=== PATIENT | female | born 1935 | race Caucasian/White ===

== ENCOUNTER 2017-01-08 17:25 | Emergency (ER) | payer MEDICARE, OTHER ==
[~2017-01-08] VITALS: Ht 157.5 cm; Wt 80.1 kg
[2017-01-08 18:02] LABS: BASO # 0.1 K/mm3 (0.0-0.2); BASO % 0.5 % (0.0-1.0); EOS # 0.2 K/mm3 (0.0-0.50); EOS % 2.2 % (0.0-3.0); LARGE UNSTAINED CELL # 0.2 K/mm3 (0.0-0.4); LARGE UNSTAINED CELL % 1.6 % (0.0-4.0); LYMPH # 2.2 K/mm3 (1.5-4.5); LYMPH % 17.4 % (24.0-44.0); MEAN CORPUSCULAR HEMOGLOBIN 30.2 pg (27.0-33.0); MEAN CORPUSCULAR HGB CONC 34.2 g/dl (32.0-36.5); MEAN CORPUSCULAR VOLUME 88.1 fl (80.0-96.0); MONO # 0.6 K/mm3 (0.0-0.8); MONO % 5.3 % (0.0-5.0); NEUTROPHILS # 8.3 K/mm3 (1.8-7.7); NEUTROPHILS % 72.9 % (36.0-66.0); PLATELET COUNT, AUTOMATED 320 k/mm3 (150-450); WHITE BLOOD COUNT 11.4 K/mm3 (4.0-10.0)
[2017-01-08] MEDS ORDERED: SYMB80INH INH (18:08)
[2017-01-08] MEDS ORDERED: PRAV40TA2 PO (18:08)
[2017-01-08] MEDS ORDERED: TRIA37.5 PO (18:08)
[2017-01-08 18:23] LABS: ANION GAP 8 MEQ/L (8-16); BLOOD UREA NITROGEN 37 MG/DL (7-18); CALCIUM LEVEL 8.8 MG/DL (8.8-10.2); CARBON DIOXIDE LEVEL 31 MEQ/L (21-32); CHLORIDE LEVEL 103 MEQ/L (98-107); CREATININE FOR GFR 1.16 MG/DL (0.55-1.02); GLOMERULAR FILTRATION RATE 47.5 (>32); GLUCOSE, FASTING 122 MG/DL (83-110); POTASSIUM SERUM 3.7 MEQ/L (3.5-5.1); SODIUM LEVEL 142 MEQ/L (136-145)
[2017-01-08] MEDS ORDERED: ISOVUE-370 76% 100ML VIAL (Q9967) As Ordered ONE (18:34)
--- NOTE | 2017-01-08 18:34 | ECGEPIP ---
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
[2017-01-08 19:00] LABS: ALBUMIN 3.3 GM/DL (3.2-5.2); ALBUMIN/GLOBULIN RATIO 0.92 (1.00-1.93); ALKALINE PHOSPHATASE 105 U/L (45-117); ALT/SGPT 13 U/L (12-78); AST/SGOT 12 U/L (15-37); BILIRUBIN,DIRECT < 0.1 MG/DL (0.0-0.2); BILIRUBIN,TOTAL 0.3 MG/DL (0.2-1.0); TOTAL PROTEIN 6.9 GM/DL (6.4-8.2)
--- NOTE | 2017-01-08 19:34 | REP ---
PORTABLE CHEST: HISTORY: Chest pain. COMPARISON: 09/18/2015 The technique utilized in obtaining the radiograph has magnified the cardiac silhouette and accentuated the interstitial markings. The superior mediastinal structures are midline. The cardiac silhouette is unremarkable in size, shape, and position. The diaphragmatic surfaces of the lungs are regular, and the costophrenic angles are clear. The pulmonary damon are clear. The imaged osseous structures are intact. IMPRESSION: There is no acute cardiopulmonary disease. No change from the prior exam. Signed by Wojciech Rowland DO 01/09/2017 12:18 P
--- NOTE | 2017-01-08 20:07 | REP ---
CT ANGIO CHEST: HISTORY: Dyspnea. Possible pulmonary embolus. COMPARISON: None. CONTRAST: 100 mL of Isovue-370 There is excellent visualization of the pulmonary arterial vasculature. There are no focal filling defects present that would be considered consistent with pulmonary emboli. There is no mediastinal or hilar adenopathy. There are no pleural or pericardial effusions. The imaged osseous structures are within normal limits for the patient's age. Evaluation of the lung damon show scattered asymmetric densities particularly in the dependent portion of the lung damon and in the lung bases along with cystic air spaces throughout the lung damon with biapical predominance, all consistent with emphysematous and fibrotic changes. There is no evidence of an abnormal nodule or spiculated mass. IMPRESSION: 1. There is no evidence of a pulmonary embolus. 2. Emphysematous changes as described above. Signed by Wojciech Rowland DO 01/09/2017 12:18 P
--- NOTE | 2017-01-08 20:28 | REP ---
CT ABDOMEN: HISTORY: Re-evaluate abdominal aortic aneurysm. COMPARISON: 04/24/2013, which is the latest prior for comparison. An abdominal aortic ultrasound examination was performed on 10/31/2016, which showed a 3.7 cm sized infrarenal abdominal aortic aneurysm with a length of 5.[address] cannot be compared to abdominal aortic ultrasound due to volume averaging and patient motion. CONTRAST: 100 mL Isovue-370 FINDINGS: There is cholelithiasis, status quo. The liver is essentially unchanged. There are no enhancing abnormalities. The spleen and pancreas are unchanged remaining within normal limits. The adrenal glands and kidneys are unchanged, remaining within normal limits. There is an infrarenal abdominal aortic aneurysm with a maximal AP dimension of 3.7 cm. The aneurysm measures approximately 5 cm in length. There is no periaortic adenopathy. There is no evidence of dissection. There is no free fluid or free air in the abdomen. The bowel loops and the mesenteries are within normal limits. CT PELVIS: There is sigmoid colon diverticulosis. The bowel loops and their mesenteries are otherwise unremarkable. There is no free fluid. There is no mass. There is no change in the osseous structures. IMPRESSION: 1. Abdominal aortic aneurysm as described above. 2. Known unchanged cholelithiasis. 3. Other findings as described above. Signed by Wojciech Rowland DO 01/09/2017 12:18 P
[2017-01-08] MEDS ORDERED: HEPARIN DRIP 25,000 UNITS in APPROPRIATE DILUENT 1 EA IV SCH (23:07)
[2017-01-08] MEDS ORDERED: NITROGLYCERIN 2% OINT 1 GM *U/D* PKT TOP ONE (23:15)
[2017-01-08] MEDS ORDERED: HEPARIN SOD (PORCINE) 5000 UNITS/ML VIAL IV ONE (23:15)
[2017-01-08 23:20] VITALS: BP 177/67
[2017-01-09 00:08] VITALS: BP 157/70
--- NOTE | 2017-01-09 05:57 | ECGEPIP ---
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
== END 2017-01-09 00:12 | disposition short-term general hospital (02) ==
LOC: M ED 19:22
DX: I21.4 Non-ST elevation (NSTEMI) myocardial infarction (principal); R06.02 Shortness of breath; E78.5 Hyperlipidemia, unspecified; J44.9 Chronic obstructive pulmonary disease, unspecified; I71.4 Abdominal aortic aneurysm, without rupture; F17.200 Nicotine dependence, unspecified, uncomplicated; Z79.899 Other long term (current) drug therapy; Z79.51 Long term (current) use of inhaled steroids
CPT/HCPCS: 71010; 71275; 74177; 80048; 80076; 82550; 82553; 83690; 83880; 84484; 85025; 93005; 93041; 94760; 96374; 99285; Q9967

== ENCOUNTER 2017-01-13 12:00 | Emergency (ER) | payer MEDICARE, OTHER ==
[~2017-01-13] VITALS: Ht 157.5 cm; Wt 77.1 kg
[~2017-01-13 12:00] MED LIST: PRAV40TA2 PO; SYMB80INH INH; TRIA37.5 PO
[2017-01-13] MEDS ORDERED: CLOP75TA2 PO (12:17)
[2017-01-13] MEDS ORDERED: CALC500T21 PO (12:17)
[2017-01-13] MEDS ORDERED: NICO21DI5 TD (12:17)
[2017-01-13] MEDS ORDERED: TYLE325T5 PO (12:17)
[2017-01-13] MEDS ORDERED: LOPR1TAB6 PO (12:17)
[2017-01-13] MEDS ORDERED: ASPI81TA85 PO (12:17)
[2017-01-13 14:17] LABS: BASO % 0.5 % (0.0-1.0); EOS # 0.2 K/mm3 (0.0-0.50); EOS % 2.2 % (0.0-3.0); LARGE UNSTAINED CELL # 0.2 K/mm3 (0.0-0.4); LARGE UNSTAINED CELL % 1.7 % (0.0-4.0); LYMPH % 15.8 % (24.0-44.0); MEAN CORPUSCULAR HEMOGLOBIN 29.2 pg (27.0-33.0); MEAN CORPUSCULAR HGB CONC 32.7 g/dl (32.0-36.5); MEAN CORPUSCULAR VOLUME 89.3 fl (80.0-96.0); MONO # 0.6 K/mm3 (0.0-0.8); MONO % 5.7 % (0.0-5.0); NEUTROPHILS # 8.4 K/mm3 (1.8-7.7); NEUTROPHILS % 74.1 % (36.0-66.0); PLATELET COUNT, AUTOMATED 299 k/mm3 (150-450); RED CELL DISTRIBUTION WIDTH 13.2 % (11.5-14.5); WHITE BLOOD COUNT 11.3 K/mm3 (4.0-10.0)
[2017-01-13 14:30] LABS: ANION GAP 4 MEQ/L (8-16); BLOOD UREA NITROGEN 24 MG/DL (7-18); CALCIUM LEVEL 8.2 MG/DL (8.8-10.2); CARBON DIOXIDE LEVEL 31 MEQ/L (21-32); CHLORIDE LEVEL 108 MEQ/L (98-107); CREATININE FOR GFR 0.83 MG/DL (0.55-1.02); GLOMERULAR FILTRATION RATE > 60.0 (>32); GLUCOSE, FASTING 98 MG/DL (83-110); POTASSIUM SERUM 4.3 MEQ/L (3.5-5.1); SODIUM LEVEL 143 MEQ/L (136-145)
--- NOTE | 2017-01-13 15:03 | REP ---
Chest two views HISTORY: Cough Comparison: 01/08/2017 The lungs are clear. The heart is normal in size. The pulmonary vasculature is normal in appearance. The bony structure is intact. IMPRESSION: No acute disease. Signed by Sanford Isidro MD 01/13/2017 02:54 P
[2017-01-13 22:02] VITALS: BP 145/68
--- NOTE | 2017-01-14 06:18 | ECGEPIP ---
Stationary ECG Study [facility] - ED Test Date: 2017-01-13 Pat Name: TEMI MCKEON Department: Room: - Gender: F Incoming Freight Clerk: jolynn : 1935 Requested By: Nickolas Boudreaux Order Number: [id number] Reading MD: Nickolas Sorenson Measurements Intervals [place] Rate: 62 P: -50 MS: 175 QRS: 79 QRSD: 85 T: 147 QT: 408 QTc: 414 Interpretive Statements SINUS RHYTHM LOW QRS VOLTAGE IN EXTREMITY LEADS NONSPECIFIC T-WAVE ABNORMALITY SIMILAR TO 01/08/17 Electronically Signed On 01-14-2017 6:18:04 EDT by Nickolas Sorenson
--- NOTE | 2017-01-14 06:20 | ECGEPIP ---
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
--- NOTE | 2017-01-14 06:27 | ECGEPIP ---
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
== END 2017-01-13 22:05 | disposition home or self-care (01) ==
LOC: M ED 13:26
DX: R06.02 Shortness of breath (principal); R07.9 Chest pain, unspecified; I25.10 Atherosclerotic heart disease of native coronary artery without angina pectoris; J44.9 Chronic obstructive pulmonary disease, unspecified; I10 Essential (primary) hypertension; I71.4 Abdominal aortic aneurysm, without rupture; Z87.891 Personal history of nicotine dependence; Z95.5 Presence of coronary angioplasty implant and graft; Z90.79 Acquired absence of other genital organ(s); Z79.82 Long term (current) use of aspirin; Z79.899 Other long term (current) drug therapy

== ENCOUNTER → 2017-01-24 | Outpatient (REF) | payer MEDICARE, OTHER ==
[~2017-01-24] MED LIST changes: +ASPI81TA85 PO; +CALC500T21 PO; +CLOP75TA2 PO; +LOPR1TAB6 PO; +NICO21DI5 TD; +TYLE325T5 PO
[2017-01-24 18:44] LABS: ANION GAP 8 MEQ/L (8-16); BLOOD UREA NITROGEN 19 MG/DL (7-18); CALCIUM LEVEL 8.8 MG/DL (8.8-10.2); CARBON DIOXIDE LEVEL 31 MEQ/L (21-32); CHLORIDE LEVEL 106 MEQ/L (98-107); CREATININE FOR GFR 0.91 MG/DL (0.55-1.02); GLOMERULAR FILTRATION RATE > 60.0 (>32); GLUCOSE, FASTING 117 MG/DL (83-110); MAGNESIUM LEVEL 2.1 MG/DL (1.8-2.4); PHOSPHORUS LEVEL 3.6 MG/DL (2.5-4.9); SODIUM LEVEL 145 MEQ/L (136-145)
== END ==
LOC: M LABDRAW1 14:29
PROVIDERS: ATTEND Internal Medicine Cardiovascular Disease
DX: I11.9 Hypertensive heart disease without heart failure (principal); Z79.899 Other long term (current) drug therapy

== ENCOUNTER 2017-03-27 10:11 | Emergency (ER) | payer MEDICARE, OTHER ==
[~2017-03-27] VITALS: Ht 157.5 cm; Wt 77.3 kg
[2017-03-27] MEDS ORDERED: SYMB80INH INH (10:29)
[2017-03-27] MEDS ORDERED: LOSA25TA8 PO (10:29)
[2017-03-27] MEDS ORDERED: RANI1TAB38 PO (10:29)
[2017-03-27] MEDS ORDERED: BUPR150T3 PO (10:29)
[2017-03-27] MEDS ORDERED: PROAAER10 INH (10:29)
[2017-03-27] MEDS ORDERED: CHLO125TA PO (10:29)
[2017-03-27] MEDS ORDERED: PANT40TA2 PO (10:29)
[2017-03-27] MEDS ORDERED: ATOR40TA75 PO (10:29)
[2017-03-27] MEDS ORDERED: CARV6.25 PO (10:29)
[2017-03-27] MEDS ORDERED: CHLO25TA GT (10:29)
[2017-03-27] MEDS ORDERED: NS 1,000 ML IV SCH (12:54)
[2017-03-27] MEDS ORDERED: ONDANSETRON 4MG/2ML VIAL (J2405) IV ONE (13:00)
[2017-03-27] MEDS: IPRATROPIUM 0.5MG/ALBUTEROL 2.5MG INH SOL UD 3ML (DUONEB)(J7620) NEB SCH ×3 (13:30→14:16)
[2017-03-27 13:41] LABS: BASO % 0.5 % (0.0-1.0); EOS # 0.4 K/mm3 (0.0-0.50); LARGE UNSTAINED CELL # 0.2 K/mm3 (0.0-0.4); LARGE UNSTAINED CELL % 1.7 % (0.0-4.0); LYMPH # 1.9 K/mm3 (1.5-4.5); LYMPH % 15.2 % (24.0-44.0); MEAN CORPUSCULAR HEMOGLOBIN 30.5 pg (27.0-33.0); MEAN CORPUSCULAR HGB CONC 34.7 g/dl (32.0-36.5); MEAN CORPUSCULAR VOLUME 87.9 fl (80.0-96.0); MONO # 0.7 K/mm3 (0.0-0.8); MONO % 6.2 % (0.0-5.0); NEUTROPHILS # 7.9 K/mm3 (1.8-7.7); NEUTROPHILS % 72.4 % (36.0-66.0); PLATELET COUNT, AUTOMATED 311 k/mm3 (150-450); RED CELL DISTRIBUTION WIDTH 13.3 % (11.5-14.5)
[2017-03-27 13:48] LABS: INR 1.06
--- NOTE | 2017-03-27 13:58 | REP ---
REASON FOR EXAM: Abdominal pain. COMPARISON: 01/08/2017 which showed an abdominal aortic aneurysm measuring 3.7 cm AP x 5 cm in length and infrarenal in location. The lungs bases are unchanged. There are no pleural or pericardial effusions. There is bibasilar subsegmental atelectatic change status quo. Note is again made with cholelithiasis. Hepatic and splenic densities are unchanged remaining within normal limits. Limited evaluation of the pancreas, adrenal glands, and kidneys show no significant changes from the prior exam. There are bilateral renal cysts. Limited evaluation of the bowel loops and their mesenteries show no significant changes from the prior exam, although limited without intravenous and oral bowel preparatory contrast agents. There is descending colon diverticulosis, status quo. There is no free fluid or free air in the abdomen. There is an infrarenal abdominal aortic aneurysm, which today measures approximately 3.9 cm. The infrarenal aneurysm is unchanged in length. It is difficult to evaluate without intravenous contrast administration. 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 CT PELVIS: There is sigmoid colon diverticulosis. There is no free fluid or free air. There is no mass or adenopathy. Bone window technique throughout the exam showed no significant change in the appearance of the osseous structures. Spinal degenerative changes are noted status quo. IMPRESSION: 1. Infrarenal abdominal aortic aneurysm as described above. This appears to have increased in size by 2 mm in the AP dimension. 2. Unchanged renal cysts, although not as well imaged as on the prior exam which was obtained after intravenous contrast administration. 3. Cholelithiasis, unchanged. 4. 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 5. Other findings as described above. Signed by Wojciech Rowland DO 03/27/2017 02:08 P
[2017-03-27 14:03] LABS: ALBUMIN 2.9 GM/DL (3.2-5.2); ALBUMIN/GLOBULIN RATIO 0.94 (1.00-1.93); ALKALINE PHOSPHATASE 103 U/L (45-117); ALT/SGPT 13 U/L (12-78); AMYLASE 35 U/L (25-115); ANION GAP 6 MEQ/L (8-16); AST/SGOT 11 U/L (15-37); BILIRUBIN,DIRECT 0.2 MG/DL (0.0-0.2); BILIRUBIN,TOTAL 0.8 MG/DL (0.2-1.0); BLOOD UREA NITROGEN 19 MG/DL (7-18); CALCIUM LEVEL 8.6 MG/DL (8.8-10.2); CARBON DIOXIDE LEVEL 31 MEQ/L (21-32); CHLORIDE LEVEL 102 MEQ/L (98-107); CREATININE FOR GFR 0.79 MG/DL (0.55-1.02); GLOMERULAR FILTRATION RATE > 60.0 (>32); GLUCOSE, FASTING 103 MG/DL (83-110); POTASSIUM SERUM 3.6 MEQ/L (3.5-5.1); SODIUM LEVEL 139 MEQ/L (136-145)
--- NOTE | 2017-03-27 14:43 | REP ---
CHEST X-RAY: Sitting AP view. HISTORY: Shortness of breath. Comparison chest x-ray January 13, 2017. FINDINGS: EKG monitoring electrodes overlie the chest. The lungs are symmetrically aerated and free of infiltrate. The heart is not felt to be enlarged. Aorta is calcific and a little tortuous. Pulmonary vasculature is not increased. EKG electrodes are seen. No significant bony abnormality. IMPRESSION: No active disease. Signed by Richard Arango MD 03/27/2017 06:20 P
[2017-03-27] MEDS ORDERED: CIPR-249 PO (18:09)
[2017-03-27] MEDS ORDERED: CIPROFLOXACIN 250 MG TAB PO ONE (18:15)
[2017-03-27] MEDS ORDERED: CIPROFLOXACIN 500 MG TAB PO ONE (18:15)
[2017-03-27 18:49] VITALS: BP 157/69
--- NOTE | 2017-03-27 21:54 | ECGEPIP ---
Stationary ECG Study 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
--- NOTE | 2017-03-28 15:02 | ED PDOC ---
Post-Departure Follow-Up dr abreu faxed formal report of ct abd/p for fu Ana Hernandez MD Mar 28, 2017 15:02
== END 2017-03-27 19:02 | disposition home or self-care (01) ==
LOC: M ED 10:11
DX: N30.90 Cystitis, unspecified without hematuria (principal); R10.9 Unspecified abdominal pain; R00.0 Tachycardia, unspecified; J45.909 Unspecified asthma, uncomplicated; J44.9 Chronic obstructive pulmonary disease, unspecified; K21.9 Gastro-esophageal reflux disease without esophagitis; I51.9 Heart disease, unspecified; F17.200 Nicotine dependence, unspecified, uncomplicated; Z88.8 Allergy status to other drugs, medicaments and biological substances; Z79.899 Other long term (current) drug therapy; Z79.02 Long term (current) use of antithrombotics/antiplatelets; Z79.82 Long term (current) use of aspirin; Z79.51 Long term (current) use of inhaled steroids
CPT/HCPCS: 71010; 74176; 80048; 80076; 81001; 82150; 83690; 85025; 85610; 93005; 93041; 94640; 96374; 99285; J2405; P9612

== ENCOUNTER 2017-07-02 16:40 | Emergency (ER) | payer MEDICARE, OTHER ==
[~2017-07-02] VITALS: Ht 157.5 cm; Wt 79.5 kg
[~2017-07-02 16:40] MED LIST changes: +ATOR40TA75 PO; +BUPR150T3 PO; +CARV6.25 PO; +CHLO125TA PO; +CHLO25TA GT; +CIPR-249 PO; +LOSA25TA8 PO; +PANT40TA2 PO; +PROAAER10 INH; +RANI1TAB38 PO
[2017-07-02] MEDS ORDERED: NS 500 ML IV ONE (17:15)
[2017-07-02 17:32] LABS: BASO # 0.1 10^3/uL (0.0-0.2); BASO % 0.4 % (0.0-1.0); EOS # 0.1 10^3/uL (0.0-0.50); EOS % 0.8 % (0.0-3.0); IMMATURE GRANULOCYTE % 0.5 % (0-0); LYMPH % 8.7 % (24.0-44.0); MEAN CORPUSCULAR HEMOGLOBIN 29.9 pg (27.0-33.0); MEAN CORPUSCULAR HGB CONC 33.7 g/dl (32.0-36.5); MEAN CORPUSCULAR VOLUME 88.7 fl (80.0-96.0); MONO # 0.4 10^3/uL (0.0-0.8); MONO % 3.8 % (0.0-5.0); NEUTROPHILS # 9.6 10^3/uL (1.8-7.7); NEUTROPHILS % 85.8 % (36.0-66.0); PLATELET COUNT, AUTOMATED 286 10^3/uL (150-450); RED CELL DISTRIBUTION WIDTH 13.3 % (11.5-14.5); WHITE BLOOD COUNT 11.2 10^3/uL (4.0-10.0)
[2017-07-02 17:46] LABS: INR 1.2
[2017-07-02 18:02] LABS: ALBUMIN 3.1 GM/DL (3.2-5.2); ALBUMIN/GLOBULIN RATIO 1.03 (1.00-1.93); ALKALINE PHOSPHATASE 106 U/L (45-117); ALT/SGPT 14 U/L (12-78); ANION GAP 6 MEQ/L (8-16); AST/SGOT 11 U/L (15-37); BILIRUBIN,DIRECT 0.2 MG/DL (0.0-0.2); BILIRUBIN,TOTAL 0.7 MG/DL (0.2-1.0); BLOOD UREA NITROGEN 27 MG/DL (7-18); CALCIUM LEVEL 8.5 MG/DL (8.8-10.2); CARBON DIOXIDE LEVEL 30 MEQ/L (21-32); CHLORIDE LEVEL 103 MEQ/L (98-107); CREATININE FOR GFR 1.06 MG/DL (0.55-1.02); GLOMERULAR FILTRATION RATE 52.6 (>32); GLUCOSE, FASTING 133 MG/DL (83-110); SODIUM LEVEL 139 MEQ/L (136-145); TOTAL PROTEIN 6.1 GM/DL (6.4-8.2)
[2017-07-02] MEDS ORDERED: ISOVUE-370 76% 100ML VIAL (Q9967) As Ordered ONE (18:51)
--- NOTE | 2017-07-02 19:50 | REPUSA ---
CT of the head Clinical history: dizziness. Comparison: 09/18/2014. Technique: Multiple axial CT images were obtained through the head without administration of contrast . Findings: The ventricles and sulci are symmetric bilaterally. There is no evidence of acute hemorrhag e or infarct. There is no midline shift, mass effect, or extra-axial fluid collection. The osseous st ructures are unremarkable. The visualized paranasal sinuses and mastoid air cells are clear. Impression: Negative study.
--- NOTE | 2017-07-02 19:50 | REPUSA ---
CT angiogram of the chest Clinical statement: shortness of breath. Technique: Multiple axial CT images were obtained from the thoracic inlet through the upper abdomen a fter a bolus administration of nonionic intravenous contrast. Coronal and sagittal reconstructions we re also obtained. No comparison is available. Findings: The pulmonary arteries are well-opacified with contrast, with no intraluminal filling defec ts to suggest embolism. The thoracic aorta is unremarkable. Thyroid gland is within normal limits. Th ere is no thoracic lymphadenopathy. There are no pericardial or pleural effusions. There is mild emph ysema with upper lobe predominance. There are no acute infiltrates. Limited imaging of the upper abdo men is unremarkable. There are no suspicious osseous lesions. Impression: Unremarkable CT examination of the chest. No evidence of pulmonary embolism.
--- NOTE | 2017-07-02 20:00 | REPUSA ---
CT of the abdomen and pelvis with contrast Clinical statement: Pain. Technique: Multiple axial CT images were obtained from the base of the lungs through the floor of the pelvis utilizing 5 mm axial slices after administration of nonionic intravenous contrast. Coronal an d sagittal reconstructions were also obtained. No comparison is available. Findings: Chest: The visualized lung bases are clear. Abdomen: The liver, spleen, pancreas, kidneys, and adrenal glands are unremarkable. Several gallstone s are seen within the gallbladder. No pericholecystic inflammatory changes are seen. The aorta demons trates a infrarenal aneurysm measuring 3.9 x 3.5 cm. There is no evidence of dissection or rupture. T here is no evidence of abdominal lymphadenopathy or ascites. There is a small umbilical hernia contai wilma only omental fat. Pelvis: The bowel is unremarkable, with no obstructive or inflammatory changes. There is moderate sig moid diverticulosis. The urinary bladder is within normal limits. The other pelvic structures appear grossly intact. There is no evidence of pelvic lymphadenopathy or ascites. Bones: There are no suspicious osseous abnormalities seen. Impression: 1. No obstructive or inflammatory bowel changes. Sigmoid diverticulosis without evidence of diverticu litis. 2. Cholelithiasis, without evidence of acute cholecystitis. 3. Infrarenal abdominal aortic aneurysm measuring 3.9 x 3.5 cm. 4. Small umbilical hernia. No bowel involvement is seen at the site.
[2017-07-02 20:15] VITALS: BP 146/83
--- NOTE | 2017-07-03 08:25 | ECGEPIP ---
Stationary ECG Study [facility] - ED Test Date: 2017-07-02 Pat Name: TEMI MCKEON Department: Room: - Gender: F Feed Weigher: APOLONIA : 1935 Requested By: JUAN Harkins Order Number: [id number] Reading MD: Esperanza Colin Measurements Intervals [place] Rate: 61 P: 41 [place]: 186 QRS: 37 QRSD: 90 T: 59 QT: 426 QTc: 431 Interpretive Statements SINUS RHYTHM LEFT VENTRICULAR HYPERTROPHY AND ST-T CHANGE VS ISCHEMIA SIMILAR 03/27/17 Electronically Signed On 07-03-2017 8:25:24 EDT by Esperanza Colin
--- NOTE | 2017-07-03 09:42 | ED PDOC ---
Post-Departure Follow-Up dr abreu faxed formal report of ct abd/p for fu Ana Hernandez MD Jul 03, 2017 09:41
== END 2017-07-02 20:16 | disposition home or self-care (01) ==
LOC: M ED 16:40
DX: R11.2 Nausea with vomiting, unspecified (principal); J44.9 Chronic obstructive pulmonary disease, unspecified; K44.9 Diaphragmatic hernia without obstruction or gangrene; Z79.01 Long term (current) use of anticoagulants; Z79.899 Other long term (current) drug therapy; Z79.82 Long term (current) use of aspirin; Z88.8 Allergy status to other drugs, medicaments and biological substances; Z87.891 Personal history of nicotine dependence
CPT/HCPCS: 70450; 71260; 74177; 80048; 80076; 82550; 82553; 83605; 83690; 84484; 85025; 85610; 85730; 93005; 93041; 96360; 96361; 99284; Q9967

== ENCOUNTER → 2018-04-28 | Outpatient (CLI) | payer MEDICARE, OTHER | LOC: M WUC 14:52 | DX: M17.12 Unilateral primary osteoarthritis, left knee (principal); M25.762 Osteophyte, left knee; M11.261 Other chondrocalcinosis, right knee; M25.562 Pain in left knee ==

== ENCOUNTER → 2018-04-28 | Outpatient (CLI) | payer MEDICARE, OTHER | LOC: M RAD 17:25 | DX: M79.605 Pain in left leg (principal); M17.12 Unilateral primary osteoarthritis, left knee; M25.762 Osteophyte, left knee; M11.261 Other chondrocalcinosis, right knee; M25.562 Pain in left knee | CPT/HCPCS: 93971 ==

== ENCOUNTER → 2018-05-30 | Outpatient (REF) | payer MEDICARE, OTHER ==
[2018-05-30 15:41] LABS: BASO # 0.1 10^3/uL (0.0-0.2); BASO % 0.4 % (0.0-1.0); EOS # 0.2 10^3/uL (0.0-0.50); EOS % 1.9 % (0.0-3.0); HEMATOCRIT 36.7 % (36.0-47.0); LYMPH # 1.5 10^3/uL (1.5-4.5); LYMPH % 12.5 % (24.0-44.0); MEAN CORPUSCULAR HEMOGLOBIN 29.4 pg (27.0-33.0); MEAN CORPUSCULAR HGB CONC 32.7 g/dl (32.0-36.5); MONO # 0.9 10^3/uL (0.0-0.8); MONO % 7.8 % (0.0-5.0); NEUTROPHILS % 76.4 % (36.0-66.0); PLATELET COUNT, AUTOMATED 385 10^3/uL (150-450); RED BLOOD COUNT 4.08 10^6/uL (4.00-5.40); RED CELL DISTRIBUTION WIDTH 13.6 % (11.5-14.5); WHITE BLOOD COUNT 11.8 10^3/uL (4.0-10.0)
[2018-05-30 15:59] LABS: URIC ACID 4.4 MG/DL (2.6-6.0)
[2018-05-30 15:59] LABS: C REACTIVE PROTEIN QUANTITATIV 0.74 MG/DL (0.00-0.30); RHEUMATOID FACTOR QUANT < 10.0 IU/ML (<15.0)
[2018-05-30 16:54] LABS: ERYTHROCYTE SEDIMENTATION RATE 49 mm/hr (0-42)
== END ==
LOC: M LABDRAW1 14:23
DX: M17.12 Unilateral primary osteoarthritis, left knee (principal)
CPT/HCPCS: 84550

== ENCOUNTER 2018-08-08 09:16 | Emergency (ER) | payer MEDICARE, OTHER ==
[2018-08-08] MEDS: LIDOCAINE VISCOUS 2% SOLN 15ML UDC MT (09:55)
[2018-08-08] MEDS: AMOXICILLIN 500 MG CAP PO (09:55)
== END 2018-08-08 10:05 | disposition home or self-care (01) ==
LOC: M ED 09:16
DX: K04.7 Periapical abscess without sinus (principal); I71.4 Abdominal aortic aneurysm, without rupture; J44.9 Chronic obstructive pulmonary disease, unspecified; I25.2 Old myocardial infarction; E78.00 Pure hypercholesterolemia, unspecified; Z95.5 Presence of coronary angioplasty implant and graft; Z88.1 Allergy status to other antibiotic agents; Z79.899 Other long term (current) drug therapy; Z79.02 Long term (current) use of antithrombotics/antiplatelets; Z79.82 Long term (current) use of aspirin; Z79.51 Long term (current) use of inhaled steroids
CPT/HCPCS: 99282

== ENCOUNTER 2018-08-20 01:14 | Inpatient (IN) | payer MEDICARE, OTHER ==
[2018-08-20] MEDS: MORPHINE 4 MG/ML 1ML VIAL/SYRINGE (J2270) SC (01:45)
[2018-08-20] MEDS: ONDANSETRON 4 MG ORAL DISINTEGRATING TAB (Q0162 PER 1MG) PO (01:45)
[2018-08-20] MEDS: LORazepam 2 MG/ML VIAL (J2060) IV (04:05)
[2018-08-20 04:24] LABS: BASO # 0.1 10^3/uL (0.0-0.2); BASO % 0.4 % (0.0-1.0); EOS # 0.4 10^3/uL (0.0-0.50); EOS % 3.3 % (0.0-3.0); HEMATOCRIT 34.2 % (36.0-47.0); HEMOGLOBIN 11.2 g/dl (12.0-15.5); IMMATURE GRANULOCYTE % 0.6 % (0-3.0); LYMPH # 1.9 10^3/uL (1.5-4.5); LYMPH % 15.3 % (24.0-44.0); MEAN CORPUSCULAR HEMOGLOBIN 29.6 pg (27.0-33.0); MEAN CORPUSCULAR HGB CONC 32.7 g/dl (32.0-36.5); MEAN CORPUSCULAR VOLUME 90.5 fl (80.0-96.0); MONO % 8.5 % (0.0-5.0); NEUTROPHILS # 8.8 10^3/uL (1.8-7.7); NEUTROPHILS % 71.9 % (36.0-66.0); PLATELET COUNT, AUTOMATED 347 10^3/uL (150-450); RED BLOOD COUNT 3.78 10^6/uL (4.00-5.40); RED CELL DISTRIBUTION WIDTH 13.2 % (11.5-14.5); WHITE BLOOD COUNT 12.2 10^3/uL (4.0-10.0)
[2018-08-20 04:47] LABS: ANION GAP 8 MEQ/L (8-16); BLOOD UREA NITROGEN 27 MG/DL (7-18); CALCIUM LEVEL 8.1 MG/DL (8.8-10.2); CARBON DIOXIDE LEVEL 29 MEQ/L (21-32); CHLORIDE LEVEL 109 MEQ/L (98-107); CREATININE FOR GFR 0.82 MG/DL (0.55-1.30); GLOMERULAR FILTRATION RATE > 60.0 (>32); GLUCOSE, FASTING 92 MG/DL (70-100); POTASSIUM SERUM 3.9 MEQ/L (3.5-5.1); SODIUM LEVEL 146 MEQ/L (136-145)
[2018-08-20] MEDS ORDERED: MORPHINE 4 MG/ML 1ML VIAL/SYRINGE (J2270) IV (06:15)
[2018-08-20] MEDS ORDERED: BISACODYL 10 MG SUPP PR (06:15)
[2018-08-20] MEDS ORDERED: ONDANSETRON 4MG/2ML VIAL (J2405) IV (06:15)
[2018-08-20] MEDS: HEPARIN SOD (PORCINE) 5000 UNITS/ML VIAL SC ×3 (06:49→20:15)
[2018-08-20] MEDS: CLOPIDOGREL 75 MG TAB PO (08:56)
[2018-08-20] MEDS: ASPIRIN 81 MG CHEW TABLET PO (08:56)
[2018-08-20] MEDS: PERCOCET 5MG/325MG TAB PO ×2 (08:56→20:16)
[2018-08-20] MEDS: SYMBICORT 80/4.5MCG INHALER 6GM INH ×2 (09:49→20:29)
[2018-08-20] MEDS: IPRATROPIUM 0.5MG/ALBUTEROL 2.5MG INH SOL UD 3ML (DUONEB)(J7620) NEB ×3 (09:50→20:00)
[2018-08-21] MEDS: IPRATROPIUM 0.5MG/ALBUTEROL 2.5MG INH SOL UD 3ML (DUONEB)(J7620) NEB ×4 (01:45→21:53)
[2018-08-21] MEDS: PERCOCET 5MG/325MG TAB PO ×3 (03:47→13:53)
[2018-08-21] MEDS: HEPARIN SOD (PORCINE) 5000 UNITS/ML VIAL SC ×3 (05:18→21:25)
[2018-08-21 06:19] LABS: HEMATOCRIT 35.3 % (36.0-47.0); HEMOGLOBIN 11.1 g/dl (12.0-15.5); MEAN CORPUSCULAR HEMOGLOBIN 28.9 pg (27.0-33.0); MEAN CORPUSCULAR HGB CONC 31.4 g/dl (32.0-36.5); MEAN CORPUSCULAR VOLUME 91.9 fl (80.0-96.0); PLATELET COUNT, AUTOMATED 349 10^3/uL (150-450); RED BLOOD COUNT 3.84 10^6/uL (4.00-5.40); RED CELL DISTRIBUTION WIDTH 13.2 % (11.5-14.5); WHITE BLOOD COUNT 13.6 10^3/uL (4.0-10.0)
[2018-08-21 06:41] LABS: GLUCOSE, FASTING 99 MG/DL (70-100)
[2018-08-21 06:42] LABS: ANION GAP 5 MEQ/L (8-16); BLOOD UREA NITROGEN 27 MG/DL (7-18); CALCIUM LEVEL 8.1 MG/DL (8.8-10.2); CARBON DIOXIDE LEVEL 32 MEQ/L (21-32); CHLORIDE LEVEL 104 MEQ/L (98-107); CREATININE FOR GFR 0.94 MG/DL (0.55-1.30); GLOMERULAR FILTRATION RATE > 60.0 (>32); POTASSIUM SERUM 3.2 MEQ/L (3.5-5.1); SODIUM LEVEL 141 MEQ/L (136-145)
[2018-08-21] MEDS: SYMBICORT 80/4.5MCG INHALER 6GM INH ×2 (07:33→21:52)
[2018-08-21] MEDS: CLOPIDOGREL 75 MG TAB PO (09:17)
[2018-08-21] MEDS: ASPIRIN 81 MG CHEW TABLET PO (09:17)
[2018-08-21] MEDS: POTASSIUM CHLORIDE 10 MEQ SR TABLET PO (09:18)
[2018-08-21] MEDS: MORPHINE 4 MG/ML 1ML VIAL/SYRINGE (J2270) IV (14:58)
[2018-08-21] MEDS: ANALGESIC BALM CRM 120 GM TOP (20:31)
[2018-08-21] MEDS: CYCLOBENZAPRINE 5MG TABLET PO (20:31)
[2018-08-21] MEDS: traMADol 50 MG TAB PO ×2 (20:32→22:26)
[2018-08-21] MEDS: ACETAMINOPHEN TAB 650MG DOSE (2X325MG) PO (21:39)
[2018-08-22] MEDS: IPRATROPIUM 0.5MG/ALBUTEROL 2.5MG INH SOL UD 3ML (DUONEB)(J7620) NEB ×4 (02:00→19:59)
[2018-08-22] MEDS: traMADol 50 MG TAB PO ×2 (05:43→14:17)
[2018-08-22] MEDS: HEPARIN SOD (PORCINE) 5000 UNITS/ML VIAL SC ×3 (05:43→22:09)
[2018-08-22 06:34] LABS: HEMATOCRIT 32.2 % (36.0-47.0); HEMOGLOBIN 10.5 g/dl (12.0-15.5); MEAN CORPUSCULAR HEMOGLOBIN 29.2 pg (27.0-33.0); MEAN CORPUSCULAR HGB CONC 32.6 g/dl (32.0-36.5); MEAN CORPUSCULAR VOLUME 89.4 fl (80.0-96.0); PLATELET COUNT, AUTOMATED 325 10^3/uL (150-450); RED CELL DISTRIBUTION WIDTH 13.2 % (11.5-14.5); WHITE BLOOD COUNT 17.8 10^3/uL (4.0-10.0)
[2018-08-22 07:01] LABS: ANION GAP 6 MEQ/L (8-16); BLOOD UREA NITROGEN 28 MG/DL (7-18); CALCIUM LEVEL 8.5 MG/DL (8.8-10.2); CARBON DIOXIDE LEVEL 31 MEQ/L (21-32); CHLORIDE LEVEL 104 MEQ/L (98-107); GLOMERULAR FILTRATION RATE > 60.0 (>32); GLUCOSE, FASTING 104 MG/DL (70-100); POTASSIUM SERUM 3.7 MEQ/L (3.5-5.1); SODIUM LEVEL 141 MEQ/L (136-145)
[2018-08-22] MEDS: SYMBICORT 80/4.5MCG INHALER 6GM INH ×2 (07:51→19:59)
[2018-08-22 09:01] LABS: MAGNESIUM LEVEL 1.7 MG/DL (1.8-2.4)
[2018-08-22] MEDS: ASPIRIN 81 MG CHEW TABLET PO (09:56)
[2018-08-22] MEDS: CLOPIDOGREL 75 MG TAB PO (09:56)
[2018-08-22] MEDS: CYCLOBENZAPRINE 5MG TABLET PO ×3 (09:56→22:09)
[2018-08-22] MEDS: ANALGESIC BALM CRM 120 GM TOP ×3 (09:59→22:09)
[2018-08-22] MEDS: cefTRIAXone SOD 1 GM in D5W MINI-BAG PLUS 50 ML IV (15:03)
[2018-08-22] MEDS: AZITHROMYCIN INJ 500 MG, VIAL MATE ADAPTER 1 EACH in D5W 250 ML IV (16:02)
[2018-08-23] MEDS: IPRATROPIUM 0.5MG/ALBUTEROL 2.5MG INH SOL UD 3ML (DUONEB)(J7620) NEB ×4 (02:00→20:00)
[2018-08-23] MEDS: traMADol 50 MG TAB PO ×2 (03:23→21:44)
[2018-08-23] MEDS: HEPARIN SOD (PORCINE) 5000 UNITS/ML VIAL SC ×3 (05:24→21:44)
[2018-08-23 06:16] LABS: HEMATOCRIT 34.3 % (36.0-47.0); HEMOGLOBIN 11.2 g/dl (12.0-15.5); MEAN CORPUSCULAR HEMOGLOBIN 29.4 pg (27.0-33.0); MEAN CORPUSCULAR HGB CONC 32.7 g/dl (32.0-36.5); PLATELET COUNT, AUTOMATED 338 10^3/uL (150-450); RED BLOOD COUNT 3.81 10^6/uL (4.00-5.40); RED CELL DISTRIBUTION WIDTH 13.3 % (11.5-14.5); WHITE BLOOD COUNT 20.7 10^3/uL (4.0-10.0)
[2018-08-23 06:41] LABS: ANION GAP 8 MEQ/L (8-16); BLOOD UREA NITROGEN 29 MG/DL (7-18); CALCIUM LEVEL 8.6 MG/DL (8.8-10.2); CARBON DIOXIDE LEVEL 29 MEQ/L (21-32); CHLORIDE LEVEL 104 MEQ/L (98-107); CREATININE FOR GFR 0.97 MG/DL (0.55-1.30); GLOMERULAR FILTRATION RATE 58.1 (>32); GLUCOSE, FASTING 121 MG/DL (70-100); POTASSIUM SERUM 3.9 MEQ/L (3.5-5.1); SODIUM LEVEL 141 MEQ/L (136-145)
[2018-08-23] MEDS: CYCLOBENZAPRINE 5MG TABLET PO ×3 (08:28→21:43)
[2018-08-23] MEDS: CLOPIDOGREL 75 MG TAB PO (08:28)
[2018-08-23] MEDS: ASPIRIN 81 MG CHEW TABLET PO (08:28)
[2018-08-23] MEDS: ANALGESIC BALM CRM 120 GM TOP ×3 (08:29→21:45)
[2018-08-23] MEDS: SYMBICORT 80/4.5MCG INHALER 6GM INH ×2 (09:08→20:35)
[2018-08-23] MEDS: methylPREDNISolone INJ 40 MG/1 ML VIAL (J2920) IV ×2 (09:44→21:44)
[2018-08-23] MEDS: SENNA 8.6 MG TAB (SENOKOT) PO ×2 (12:24→21:43)
[2018-08-23] MEDS: cefTRIAXone SOD 1 GM in D5W MINI-BAG PLUS 50 ML IV (14:37)
[2018-08-23] MEDS: AZITHROMYCIN INJ 500 MG, VIAL MATE ADAPTER 1 EACH in D5W 250 ML IV (16:31)
[2018-08-24] MEDS: IPRATROPIUM 0.5MG/ALBUTEROL 2.5MG INH SOL UD 3ML (DUONEB)(J7620) NEB ×4 (01:53→19:40)
[2018-08-24] MEDS: HEPARIN SOD (PORCINE) 5000 UNITS/ML VIAL SC ×3 (05:16→21:30)
[2018-08-24 06:03] LABS: HEMATOCRIT 31.7 % (36.0-47.0); HEMOGLOBIN 10.3 g/dl (12.0-15.5); MEAN CORPUSCULAR HEMOGLOBIN 29.3 pg (27.0-33.0); MEAN CORPUSCULAR HGB CONC 32.5 g/dl (32.0-36.5); MEAN CORPUSCULAR VOLUME 90.3 fl (80.0-96.0); PLATELET COUNT, AUTOMATED 351 10^3/uL (150-450); RED BLOOD COUNT 3.51 10^6/uL (4.00-5.40); WHITE BLOOD COUNT 15.3 10^3/uL (4.0-10.0)
[2018-08-24 06:21] LABS: ANION GAP 6 MEQ/L (8-16); BLOOD UREA NITROGEN 35 MG/DL (7-18); CALCIUM LEVEL 8.7 MG/DL (8.8-10.2); CARBON DIOXIDE LEVEL 29 MEQ/L (21-32); CHLORIDE LEVEL 104 MEQ/L (98-107); CREATININE FOR GFR 0.81 MG/DL (0.55-1.30); GLOMERULAR FILTRATION RATE > 60.0 (>32); GLUCOSE, FASTING 144 MG/DL (70-100); POTASSIUM SERUM 4.1 MEQ/L (3.5-5.1); SODIUM LEVEL 139 MEQ/L (136-145)
[2018-08-24] MEDS: SYMBICORT 80/4.5MCG INHALER 6GM INH ×2 (09:15→19:40)
[2018-08-24] MEDS: methylPREDNISolone INJ 40 MG/1 ML VIAL (J2920) IV ×2 (09:39→21:30)
[2018-08-24] MEDS: traMADol 50 MG TAB PO ×4 (09:40→21:31)
[2018-08-24] MEDS: CYCLOBENZAPRINE 5MG TABLET PO ×3 (09:41→21:30)
[2018-08-24] MEDS: SENNA 8.6 MG TAB (SENOKOT) PO ×2 (09:41→21:30)
[2018-08-24] MEDS: CLOPIDOGREL 75 MG TAB PO (09:41)
[2018-08-24] MEDS: ASPIRIN 81 MG CHEW TABLET PO (09:41)
[2018-08-24] MEDS: ANALGESIC BALM CRM 120 GM TOP ×3 (09:42→21:32)
[2018-08-24] MEDS: MOM 30ML SUSPENSION UDC PO (15:04)
[2018-08-24] MEDS: cefTRIAXone SOD 1 GM in D5W MINI-BAG PLUS 50 ML IV (15:04)
[2018-08-24] MEDS: AZITHROMYCIN INJ 500 MG, VIAL MATE ADAPTER 1 EACH in D5W 250 ML IV (15:06)
[2018-08-25] MEDS: IPRATROPIUM 0.5MG/ALBUTEROL 2.5MG INH SOL UD 3ML (DUONEB)(J7620) NEB ×4 (01:35→20:00)
[2018-08-25] MEDS: HEPARIN SOD (PORCINE) 5000 UNITS/ML VIAL SC ×3 (06:26→21:47)
[2018-08-25 07:02] LABS: MEAN CORPUSCULAR HEMOGLOBIN 29.5 pg (27.0-33.0); MEAN CORPUSCULAR HGB CONC 32.3 g/dl (32.0-36.5); MEAN CORPUSCULAR VOLUME 91.4 fl (80.0-96.0); PLATELET COUNT, AUTOMATED 397 10^3/uL (150-450); RED BLOOD COUNT 3.39 10^6/uL (4.00-5.40); RED CELL DISTRIBUTION WIDTH 13.2 % (11.5-14.5); WHITE BLOOD COUNT 15.8 10^3/uL (4.0-10.0)
[2018-08-25 07:20] LABS: ANION GAP 5 MEQ/L (8-16); BLOOD UREA NITROGEN 42 MG/DL (7-18); C REACTIVE PROTEIN QUANTITATIV 6.32 MG/DL (0.00-0.30); CALCIUM LEVEL 8.4 MG/DL (8.8-10.2); CARBON DIOXIDE LEVEL 29 MEQ/L (21-32); CHLORIDE LEVEL 106 MEQ/L (98-107); CREATININE FOR GFR 0.97 MG/DL (0.55-1.30); GLOMERULAR FILTRATION RATE 58.1 (>32); GLUCOSE, FASTING 127 MG/DL (70-100); POTASSIUM SERUM 4.7 MEQ/L (3.5-5.1); SODIUM LEVEL 140 MEQ/L (136-145)
[2018-08-25] MEDS: SYMBICORT 80/4.5MCG INHALER 6GM INH ×2 (08:24→20:22)
[2018-08-25] MEDS: SENNA 8.6 MG TAB (SENOKOT) PO ×2 (09:01→21:47)
[2018-08-25] MEDS: traMADol 50 MG TAB PO (09:01)
[2018-08-25] MEDS: ASPIRIN 81 MG CHEW TABLET PO (09:02)
[2018-08-25] MEDS: CYCLOBENZAPRINE 5MG TABLET PO ×3 (09:02→21:47)
[2018-08-25] MEDS: CLOPIDOGREL 75 MG TAB PO (09:02)
[2018-08-25] MEDS: methylPREDNISolone INJ 40 MG/1 ML VIAL (J2920) IV ×2 (09:02→21:47)
[2018-08-25] MEDS: ANALGESIC BALM CRM 120 GM TOP ×3 (09:02→21:48)
[2018-08-25] MEDS: cefTRIAXone SOD 1 GM in D5W MINI-BAG PLUS 50 ML IV (13:58)
[2018-08-25] MEDS: MOM 30ML SUSPENSION UDC PO (13:58)
[2018-08-25] MEDS: AZITHROMYCIN INJ 500 MG, VIAL MATE ADAPTER 1 EACH in D5W 250 ML IV (17:15)
[2018-08-26] MEDS: IPRATROPIUM 0.5MG/ALBUTEROL 2.5MG INH SOL UD 3ML (DUONEB)(J7620) NEB ×3 (02:00→13:30)
[2018-08-26 06:30] LABS: HEMOGLOBIN 9.8 g/dl (12.0-15.5); MEAN CORPUSCULAR HGB CONC 31.6 g/dl (32.0-36.5); MEAN CORPUSCULAR VOLUME 91.7 fl (80.0-96.0); PLATELET COUNT, AUTOMATED 404 10^3/uL (150-450); RED BLOOD COUNT 3.38 10^6/uL (4.00-5.40); RED CELL DISTRIBUTION WIDTH 13.3 % (11.5-14.5); WHITE BLOOD COUNT 13.8 10^3/uL (4.0-10.0)
[2018-08-26] MEDS: HEPARIN SOD (PORCINE) 5000 UNITS/ML VIAL SC (06:37)
[2018-08-26 06:50] LABS: ANION GAP 5 MEQ/L (8-16); BLOOD UREA NITROGEN 41 MG/DL (7-18); C REACTIVE PROTEIN QUANTITATIV 2.99 MG/DL (0.00-0.30); CALCIUM LEVEL 8.4 MG/DL (8.8-10.2); CARBON DIOXIDE LEVEL 31 MEQ/L (21-32); CHLORIDE LEVEL 104 MEQ/L (98-107); CREATININE FOR GFR 0.95 MG/DL (0.55-1.30); GLOMERULAR FILTRATION RATE 59.5 (>32); GLUCOSE, FASTING 128 MG/DL (70-100); POTASSIUM SERUM 4.9 MEQ/L (3.5-5.1); SODIUM LEVEL 140 MEQ/L (136-145)
[2018-08-26] MEDS: SYMBICORT 80/4.5MCG INHALER 6GM INH (07:57)
[2018-08-26] MEDS: MAGNESIUM CITRATE 300 ML BTL PO (09:00)
[2018-08-26] MEDS: ASPIRIN 81 MG CHEW TABLET PO (09:07)
[2018-08-26] MEDS: SENNA 8.6 MG TAB (SENOKOT) PO (09:07)
[2018-08-26] MEDS: CYCLOBENZAPRINE 5MG TABLET PO (09:07)
[2018-08-26] MEDS: predniSONE 20 MG TAB PO (09:07)
[2018-08-26] MEDS: CLOPIDOGREL 75 MG TAB PO (09:08)
[2018-08-26] MEDS: ANALGESIC BALM CRM 120 GM TOP (09:09)
[2018-08-26] MEDS ORDERED: MAGNESIUM CITRATE 300 ML BTL PO (13:00)
== END 2018-08-26 17:10 | disposition home health service (06) | DRG 551 ==
LOC: M ED 01:14 → M ED INP 06:10 → M MS5PR 11:20
DX: M51.16 Intervertebral disc disorders with radiculopathy, lumbar region (principal); J18.9 Pneumonia, unspecified organism; J44.0 Chronic obstructive pulmonary disease with (acute) lower respiratory infection; I10 Essential (primary) hypertension; I25.10 Atherosclerotic heart disease of native coronary artery without angina pectoris; I71.4 Abdominal aortic aneurysm, without rupture; R32 Unspecified urinary incontinence; E87.6 Hypokalemia; K44.9 Diaphragmatic hernia without obstruction or gangrene; M46.1 Sacroiliitis, not elsewhere classified; M48.061 Spinal stenosis, lumbar region without neurogenic claudication; Z87.891 Personal history of nicotine dependence; Z95.5 Presence of coronary angioplasty implant and graft; Z79.82 Long term (current) use of aspirin; Z79.899 Other long term (current) drug therapy; Z88.8 Allergy status to other drugs, medicaments and biological substances; Z79.02 Long term (current) use of antithrombotics/antiplatelets

== ENCOUNTER → 2018-10-09 | Outpatient (CLI) | payer MEDICARE, OTHER ==
[~2018-10-09] MED LIST changes: +AMLO2.5T3 PO; +AMLO25TA PO; +AMLO5TAB6 PO; +AMOX500C PO; +CEFD300CAP PO; +CHLO25TA PO; +FLON1SPR; +FLON1SPR NARES; +LOSA25TA14 PO; -LOSA25TA8 PO; -NICO21DI5 TD; +NICO21DI6 TD; +OCEA0.654; -PANT40TA2 PO; +PANT40TA3 PO; +PRED10TA2 PO
--- NOTE | 2018-10-09 17:09 | REP ---
CT abdomen and pelvis without IV or oral contrast: History: Abdominal aortic aneurysm with rupture. Comparison CT study July 02, 2017. CT findings: Preliminary digital training assistant radiograph shows a normal bowel gas pattern. There is right middle lobe and lingular basilar fibrosis. Lung damon are otherwise clear. No focal hepatic lesion is seen. The spleen is unremarkable. There is vascular calcification. Peripherally calcified large gallstones are seen in the gallbladder. No pancreatic abnormality is observed. Normal adrenal glands are seen. There is a low-density cyst in the left kidney 2.3 cm in diameter. A small peripheral hyperdense cyst is seen at the lower pole of the right kidney. There is an infrarenal abdominal aortic aneurysm which measures 4.0 cm in greatest diameter. There is no evidence of grazyna aneurysmal fibrosis or hemorrhage. No iliac artery aneurysm is seen. Left colonic diverticulosis is seen. Small and large intestinal bowel loops are otherwise unremarkable. No abdominal wall defect is seen. No bony destructive lesion is appreciated. Impression: 4.0 cm infrarenal abdominal aortic aneurysm which it is unchanged from the July 02, 2017 prior study. Cholelithiasis. Left renal cyst. Electronically Signed by Richard Arango MD 10/09/2018 05:30 P
== END ==
LOC: M RAD 14:55
PROVIDERS: ATTEND Surgery Vascular Surgery
DX: I71.4 Abdominal aortic aneurysm, without rupture (principal); N28.1 Cyst of kidney, acquired

== ENCOUNTER → 2019-03-27 | Outpatient (CLI) | payer MEDICARE, OTHER ==
--- NOTE | 2019-03-27 09:39 | REP ---
ULTRASOUND ABDOMINAL AORTA: Real-time sonographic evaluation of the abdominal aorta is performed. Fusiform aneurysmal dilatation is again seen of the mid abdominal aorta just inferior to the level of the renal arteries extending for a length of approximately 5 cm. The maximum AP diameter is 4.3 cm. Compared to the CT of 10/09/2018, this appears slightly increased, prior measurement is 3.9 cm. Proximal abdominal aorta is normal in caliber with maximum AP diameter of 2.4 cm. Distally just above the bifurcation, AP diameter is 2.8 cm. Common iliac artery is normal in caliber both measuring 1 cm in diameter. Scattered atherosclerotic calcifications are seen diffusely. IMPRESSION: Possible slight increase in size of fusiform aneurysm of mid abdominal aorta, measurement on prior CT 3.9 cm in maximum AP dimension, currently 4.3 cm. Electronically Signed by Jared Oleary MD 03/28/2019 10:45 A
== END ==
LOC: M RAD 08:08
PROVIDERS: ATTEND Physician Assistant
DX: I71.4 Abdominal aortic aneurysm, without rupture (principal)

== ENCOUNTER 2019-06-04 07:32 | Day surgery (SDC) | payer MEDICARE, OTHER ==
[~2019-06-04] VITALS: Ht 157.5 cm; Wt 65.2 kg
[2019-06-04] MEDS: NS 1,000 ML IV ONE (06:00)
[2019-06-04] MEDS ORDERED: LIDOCAINE 2% INJ 100 MG/5 ML SDV (FOR ANES.) As Ordered ONE (08:53)
[2019-06-04] MEDS ORDERED: PROPOFOL 500 MG/50 ML VIAL As Ordered ONE (08:53)
--- NOTE | 2019-06-04 09:25 | ROOR ---
Patient Name: Suzanne Rojas Procedure Date: 06/04/2019 8:39 AM Date of : 1935 Age: 84 Room: [facility] Gender: Female Note Status: Finalized Procedure: Upper GI endoscopy Indications: Generalized abdominal pain, Weight loss Providers: Sulaiman Dias Jr, MD Referring MD: Julita GOLD MD Requesting Provider: Medicines: Propofol per Anesthesia Complications: No immediate complications. Procedure: Pre-Anesthesia Assessment: - Prior to the procedure, a History and Physical was performed, and patient medications and allergies were reviewed. The patient is competent. The risks and benefits of the procedure and the sedation options and risks were discussed with the patient. All questions were answered and informed consent was obtained. Patient identification and proposed procedure were verified by the physician and the nurse in the pre-procedure area and in the procedure room. Mental Status Examination: alert and oriented. Airway Examination: normal oropharyngeal airway and neck mobility. Respiratory Examination: clear to auscultation. CV Examination: normal. ASA Grade Assessment: II - A patient with mild systemic disease. After reviewing the risks and benefits, the patient was deemed in satisfactory condition to undergo the procedure. The anesthesia plan was to use moderate sedation / analgesia (conscious sedation). Immediately prior to administration of medications, the patient was re-assessed for adequacy to receive sedatives. The heart rate, respiratory rate, oxygen saturations, blood pressure, adequacy of pulmonary ventilation, and response to care were monitored throughout the procedure. The physical status of the patient was re-assessed after the procedure. The Endoscope was introduced through the mouth, and advanced to the second part of duodenum. The upper GI endoscopy was accomplished without difficulty. The patient tolerated the procedure well. Findings: The upper third of the esophagus, middle third of the esophagus and lower third of the esophagus were normal. A small hiatal hernia was present. The cardia, gastric fundus, gastric body, gastric antrum, prepyloric region of the stomach and pylorus were normal. The duodenal bulb, first portion of the duodenum and second portion of the duodenum were normal. A single diminutive angioectasia without bleeding was found in the duodenal bulb. Impression: - Normal upper third of esophagus, middle third of esophagus and lower third of esophagus. - Small hiatal hernia. - Normal cardia, gastric fundus, gastric body, antrum, prepyloric region of the stomach and pylorus. - Normal duodenal bulb, first portion of the duodenum and second portion of the duodenum. - A single non-bleeding angioectasia in the duodenum. - No specimens collected. Recommendation: - Discharge patient to home (ambulatory). - Return to my office as previously scheduled. Sulaiman Dias MD Sulaiman Dias Jr, MD 06/04/2019 9:25:02 AM Electronically signed by Sulaiman Dias Jr, MD Number of Addenda: 0 Note Initiated On: 06/04/2019 8:39 AM Estimated Blood Loss: Estimated blood loss: none.
--- NOTE | 2019-06-04 09:28 | ROOR ---
Patient Name: Suzanne Rojas Procedure Date: 06/04/2019 8:40 AM Date of : 1935 Age: 84 Room: [facility] Gender: Female Note Status: Finalized Procedure: Colonoscopy Indications: Generalized abdominal pain, Weight loss Providers: Sulaiman Dias Jr, MD Referring MD: Julita GOLD MD Requesting Provider: Medicines: Propofol per Anesthesia Complications: No immediate complications. Procedure: Pre-Anesthesia Assessment: - Prior to the procedure, a History and Physical was performed, and patient medications and allergies were reviewed. The patient is competent. The risks and benefits of the procedure and the sedation options and risks were discussed with the patient. All questions were answered and informed consent was obtained. Patient identification and proposed procedure were verified by the physician and the nurse in the pre-procedure area and in the procedure room. Mental Status Examination: alert and oriented. Airway Examination: normal oropharyngeal airway and neck mobility. Respiratory Examination: clear to auscultation. CV Examination: normal. ASA Grade Assessment: II - A patient with mild systemic disease. After reviewing the risks and benefits, the patient was deemed in satisfactory condition to undergo the procedure. The anesthesia plan was to use moderate sedation / analgesia (conscious sedation). Immediately prior to administration of medications, the patient was re-assessed for adequacy to receive sedatives. The heart rate, respiratory rate, oxygen saturations, blood pressure, adequacy of pulmonary ventilation, and response to care were monitored throughout the procedure. The physical status of the patient was re-assessed after the procedure. The Colonoscope was introduced through the anus and advanced to the cecum, identified by appendiceal orifice and ileocecal valve. The colonoscopy was performed without difficulty. The patient tolerated the procedure well. The quality of the bowel preparation was adequate. Findings: Many small and large-mouthed diverticula were found in the sigmoid colon. A medium polyp was found in the rectum. The polyp was semi-sessile. The polyp was removed with a hot snare. Resection was complete, but the polyp tissue was only partially retrieved. The recto-sigmoid colon, descending colon, transverse colon, ascending colon, cecum and ileocecal valve appeared normal. Impression: - Diverticulosis in the sigmoid colon. - One medium polyp in the rectum, removed with a hot snare. Complete resection. Partial retrieval. - The recto-sigmoid colon, descending colon, transverse colon, ascending colon, cecum and ileocecal valve are normal. Recommendation: - Discharge patient to home (ambulatory). - Repeat colonoscopy for surveillance based on pathology results. Sulaiman Dias MD Sulaiman Dias Jr, MD 06/04/2019 9:27:40 AM Electronically signed by Sulaiman Dias Jr, MD Number of Addenda: 0 Note Initiated On: 06/04/2019 8:40 AM Estimated Blood Loss: Estimated blood loss: none.
[2019-06-04 09:50] VITALS: BP 181/91
== END 2019-06-04 10:05 | disposition home or self-care (01) ==
LOC: M OPP 07:32
PROVIDERS: ATTEND Surgery
DX: K62.1 Rectal polyp (principal); K57.30 Diverticulosis of large intestine without perforation or abscess without bleeding; R63.4 Abnormal weight loss; R10.84 Generalized abdominal pain; K44.9 Diaphragmatic hernia without obstruction or gangrene; Z79.899 Other long term (current) drug therapy; Z88.8 Allergy status to other drugs, medicaments and biological substances

== ENCOUNTER → 2019-06-16 | Outpatient (CLI) | payer MEDICARE, OTHER ==
--- NOTE | 2019-06-16 11:26 | REP ---
REASON FOR EXAM: Followup abdominal aortic aneurysm. COMPARISON EXAMINATION: 03/27/2019, the latest prior. The prior examination showed a fusiform abdominal aortic aneurysm just inferior to the renal veins with a maximum AP dimension of 4.3 cm and a length of approximately 5 cm. Multiple ultrasonographic images of the abdominal aorta were obtained from the level of the celiac axis to the aortoiliac bifurcation in the same fashion at the prior exam. Once again, the maximal AP dimension of the abdominal aortic aneurysm is 4.3 cm measured in the longitudinal scan plane. Again, this is seen to begin just inferior to the renal veins and measures approximately 5.2 cm in length. There is no change in the appearance of the common iliac arteries. There is no evidence of davie ectasia. IMPRESSION: Abdominal aortic aneurysm. No significant change from the prior exam as described above. Electronically Signed by Wojciech Rowland DO 06/16/2019 02:37 P
== END ==
LOC: M RAD 08:41
PROVIDERS: ATTEND Internal Medicine
DX: I71.4 Abdominal aortic aneurysm, without rupture (principal)

== ENCOUNTER 2019-06-23 05:37 | Day surgery (SDC) | payer MEDICARE, OTHER ==
--- NOTE | 2019-06-18 20:16 | CR ---
DATE OF CONSULTATION: 06/18/2019 PREOPERATIVE CONSULTATION FOR: Dr. Dias for laparoscopic cholecystectomy scheduled at [facility] 06/23/2019. Dear Dr. Dias, Thank you for asking me to see Ms. Suzanne Rojas in preoperative consultation. She is, as you know, an 84-year-old female, past medical history of coronary artery disease, chronic obstructive pulmonary disease (COPD), abdominal aortic aneurysm, presenting for preoperative optimization. The patient was originally seen on 06/10/2019 at which time she was quite short of breath and not using her inhalers. Symbicort and ProAir sent to pharmacy using it with spacers as prescribed. Continues to smoke, is down to five cigarettes a day, has not filled the Nicoderm CQ, hopes to quit before her surgery. Patient presented for spirometry this week. She was unable to complete spirometry because of difficulty following the instructions. On 06/10/2019, the patient reported her abdominal aneurysm had recently grown. The patient had a repeat ultrasound this week which showed stability compared to March. The patient is very hard of hearing; she is not wearing hearing aids. Communication is challenging. The patient continues to eat small frequent meals. She is taking her pantoprazole and ranitidine as well as sucralfate that Dr. Dias just prescribed The patient has a known history of coronary artery disease, last stress testing 02/03/2019 did show a reversible small medium intensity inferior basal myocardial perfusion defect with recommendations of medical management. At the patient's first preoperative consultation, 06/10/2019, she was noted to have new ventricular ectopy, she has been referred to cardiology and will see them tomorrow, 06/19/2019, to confirm patient optimized from a cardiovascular standpoint without need for evaluation/treatment. The patient notes her Plavix has already been on hold for 1 week prior to surgery. Otherwise she continues on home medications. Her daughter suggest that the patient is noncompliant. The patient has some chronic arthritic symptoms but these are stable. The patient has known aortic stenosis. Her last echo 05/07/2018 showed stability with a recommendation to repeat in 2 years. She is quite inactive but denies any syncope or presyncope, chest pain or palpitations. REVIEW OF SYSTEMS: Otherwise negative. PAST MEDICAL HISTORY: 1. Hypertension. 2. Hyperlipidemia. 3. Hyperglycemia. 4. Obesity. 5. COPD, unable to do repeat spirometry 06/16/2019. Last spirometry completed was 03/10/2014 with an FVC of 2.78, 123% of predicted and FEV-1 of 1.66 which was 100% of predicted, a ratio of FEV-1 to FVC of 0.6. The patient does continue to smoke. 6. 3, para 3. 7. Hysterectomy secondary to fibroids with bilateral oophorectomy. 8. Hematuria, status post cysto, IVP in 2009 and 2012, negative. 9. Cholelithiasis. 10. Hiatal hernia. 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 12. Aortic valve stenosis. Last echo 05/13/2018 showing moderate aortic valve sclerosis with mild stenosis and trace insufficiency, stable and recommendation to repeat 2 years. 13. Abdominal aortic aneurysm with ultrasound 03/27/2019 showing growth from 3.9 to 4.3 cm. Repeat echo 06/16/2019 showing stability at 4.3 x 5.2 cm. 14. Breast calcifications status post biopsy 06/27. Follow-up mammogram 07/20/2015 stable at [facility]. 15. Coronary artery disease 04/24/2017 showing marginal reversible small inferior perfusion defect. 12/31 non-ST segment elevated myocardial infarction (CO), one stenting. Repeat stress test 02/03/2019 reconfirming the reversible small medium intensity inferior basal myocardial perfusion defect, unchanged compared to 05/02. 16. Ventricular ectopy, first noted EKG 06/10/2019. 17. Hard of hearing, refuses hearing aids. MEDICATIONS: - baby aspirin daily - atorvastatin 40 mg daily - bupropion ER 150 mg daily - carvedilol 6.25 mg by mouth twice a day - chlorthalidone 25 mg one-half Saturday, Saturday, Saturday - Claritin 10 mg daily - Plavix 75 mg daily - diclofenac gel 1 gram three times a day as needed - Flonase as needed - losartan 25 mg daily - nitroglycerin as needed - pantoprazole 40 mg daily - potassium chloride 10 mEq Saturday, Saturday, Saturday - ProAir as needed - ranitidine 150 mg daily - Symbicort 160 two puffs twice a day - Tylenol as needed - Recently sucralfate was added by Dr. Dias. DRUG ALLERGIES: NITROFURANTOIN which made her short of breath. FAMILY HISTORY: Father had diabetes, of heart disease at 75. Mom had Alzheimer's, of colon cancer at 93. A daughter has peripheral neuropathy. A brother of cancer at 85. Another brother from pulmonary embolism at 86. A sister of cancer in the gallbladder at 98. SOCIAL HISTORY: The patient smokes presently five to six cigarettes a day. Denies alcohol use. She lives independently. PHYSICAL EXAMINATION: Obese female in no acute distress. Vital signs: Weight 145, blood pressure 128/84 with a heart rate of 64, oxygen saturation (O2 sat) is 95% with a body mass index (BMI) of 27.7. General: No acute distress. HEENT Exam: Head is normocephalic. Neck is supple. Pupils equal, reactive to light. She does wear eyeglasses. She is very hard of hearing. Tympanic membranes surprisingly normal with only a scant amount of cerumen. She wears dentures. No cervical lymphadenopathy, jugular venous distention (JVD) or carotid bruits. Neck is supple. No thyromegaly. Respiratory: Coarse decreased breath sounds, symmetric excursion. Breast Exam: Deferred. Cardiovascular: 3/6 systolic murmur radiating to the carotids. Abdomen: Protuberant, soft, nontender. No hepatosplenomegaly. Extremities: Some osteoarthritis (OA) changes but no cyanosis, clubbing. Neurologic: She is quite hard of hearing, some difficulty with communication but appears to be alert and oriented. Symmetric reflexes. LABORATORY DATA: 06/10/2019 CBC - white count is 11, hemoglobin 13.7 with a hematocrit of 40.6, platelet count 377. Normal magnesium, med profile, liver panel except for a GFR of 43, normal TSH 2.21. EKG done 06/10/2019 shows wandering atrial pacemaker, frequent premature ventricular contractions (PVCs), rate of 71, axis of 56, diffuse T-wave flattening, T-wave inversions II, III, aVF, similar to 01/26/2019. EKG shows no significant change compared to 01/26/2019 other than new PVCs. IMPRESSION Ms. Suzanne Rojas, 84-year-old female with cardiovascular risk factors of tobacco abuse, age, obesity, hyperlipidemia, hypertension. Known reversibility on recent stress testing, is clinically stable. EKG does show new ventricular ectopy. Will request cardiology approval prior to giving full optimization to proceed with surgical intervention. RECOMMENDATIONS: 1. Chronic obstructive pulmonary disease. Unable to completes spirometry. She will take Symbicort ProAir twice a day until surgery including morning of surgery. Nicotine cessation strongly recommended. She can take her bupropion morning of surgery. 2. Coronary artery disease. Perfusion defect is unchanged from 2017. He does have new ventricular ectopy. I have asked her to take her carvedilol morning of surgery, Plavix already on hold. Await cardiology final clearance. 3. Aortic stenosis. [place] to be mild and should be safe to proceed. 4. Hypertensive chronic renal insufficiency (CRI). Will hold pharmacologic therapy morning of surgery except for carvedilol. 5. Gastroesophageal reflux disease. She will take pantoprazole morning of surgery with a sip of water. 6. Abdominal aortic aneurysm. No further growth on 06/16/2019 ultrasound, await cardiology final approval to proceed with surgical intervention. 7. Osteoarthritis. I have approved her using her Tylenol perioperatively. 8. Hyperlipidemia. She will continue atorvastatin perioperatively. Thank you very much for this consultation. Please call with questions or concerns. Await cardiology final approval before proceeding with the surgical intervention. ADDENDUM: The patient is seen by cardiology 06/19/2019 felt to be optimized but an intermittent surgical risk with recommendations to hold Plavix 5 days prior to surgery, which had all ready been recommended. It was approved to take aspirin until a.m. of surgery. Agree with cardiology recommendations. Patient optimized and felt to be at intermediate risk to proceed with surgical intervention. Please call with any questions or concerns. Addendum dictated: 06/22/2019 1211 Addendum transcribed: 06/22/2019 1218 vivienne SHAFFER
[~2019-06-23] VITALS: Ht 157.5 cm; Wt 65.3 kg
[2019-06-23] MEDS ORDERED: LR 1,000 ML IV ONE (06:00)
[2019-06-23] MEDS ORDERED: LIDOCAINE 1% MDV 20ML VIAL SQ PRN (06:00)
[2019-06-23] MEDS ORDERED: ceFAZolin SOD 1 GM in D5W MINI-BAG PLUS 50 ML IV ONE (06:00)
[2019-06-23] MEDS ORDERED: BUPIVACAINE/EPIN 0.25% 30 ML VIAL As Ordered ONE (07:10)
[2019-06-23] MEDS ORDERED: CONRAY-60 60% 50ML VIAL (Q9961) As Ordered ONE (07:10)
[2019-06-23] MEDS ORDERED: GLUCAGON FOR INJ 1 MG VIAL (J1610) As Ordered ONE (07:11)
[2019-06-23] MEDS ORDERED: fentaNYL 250 MCG/5 ML INJECTION (J3010) As Ordered ONE (07:22)
[2019-06-23] MEDS ORDERED: PROPOFOL 200 MG/20 ML VIAL As Ordered ONE (07:22)
[2019-06-23] MEDS ORDERED: ROCURONIUM BROMIDE 50 MG/5 ML VIAL As Ordered ONE (07:22)
[2019-06-23] MEDS ORDERED: LIDOCAINE 2% INJ 100 MG/5 ML SDV (FOR ANES.) As Ordered ONE (07:22)
[2019-06-23] MEDS ORDERED: MIDAZOLAM INJ 2 MG/2 ML VIAL (J2250) As Ordered ONE (07:23)
[2019-06-23] MEDS ORDERED: ETOMIDATE INJ 20MG/10ML VIAL As Ordered ONE (07:36)
[2019-06-23] MEDS ORDERED: dexameTHASONE 4 MG/ML 1ML VIAL (J1100) As Ordered ONE (08:07)
[2019-06-23] MEDS ORDERED: KETOROLAC 60 MG/2 ML VIAL (J1885) As Ordered ONE (08:07)
[2019-06-23] MEDS ORDERED: ePHEDrine SULFATE 25 MG/5 ML(5MG/ML) SYRINGE As Ordered ONE (08:07)
[2019-06-23] MEDS ORDERED: ONDANSETRON 4MG/2ML VIAL (J2405) As Ordered ONE (08:07)
[2019-06-23] MEDS ORDERED: ACETAMINOPHEN 1000MG 100ML IV BTL (OFIRMEV) (J0131 PER 10MG) As Ordered ONE (08:18)
--- NOTE | 2019-06-23 08:59 | RO ---
DATE OF PROCEDURE: 06/23/2019 PREOPERATIVE DIAGNOSIS: Cholecystitis/history of gallstones. POSTOPERATIVE DIAGNOSIS: Cholecystitis/history of gallstones. PROCEDURE: Laparoscopic cholecystectomy. SURGEON: Sulaiman Dias MD [id number] APPLICATION DEVELOPER: ANESTHESIA: General endotracheal anesthesia. ESTIMATED BLOOD LOSS (EBL): Minimal. FLUIDS: Crystalloid. BRIEF PROCEDURE SUMMARY: The patient was brought to the operating room and was given general anesthesia. After adequate anesthesia and preoperative antibiotics were given, the patient was prepped and draped in usual sterile fashion. Next, a supraumbilical incision was made with skin knife. Blunt dissection was carried down to fascia. Fascia was entered with a Veress needle, insufflated to 15 mm of pressure. The dilating 10 mm trocar was placed at this time and under direct visualization an epigastric and two lateral trocars were placed. There definitely was some adhesions along the left side of the abdomen near the midline but these were not in the area of the gallbladder itself. There were some minimal adhesions of the gallbladder to the omentum in this area that were taken down with hook cautery. The gallbladder was grasped, retracted superiorly and the neck of the gallbladder was cleared of peritoneum showing the cystic duct nicely as well as the cystic artery. After clearing the posterior aspect of the neck of the gallbladder, a critical view of safety was obtained. The cystic artery was clipped proximally, transected distally with cautery and then the gallbladder was further mobilized allowing the cystic duct to be nicely skeletonized in this area at the junction of the cystic duct/gallbladder neck junction and in this was clipped proximally and distally and transected. The gallbladder was removed from the gallbladder bed using electrocautery and placed in an Endo Catch bag brought out through the umbilicus. There were some adhesions just above the umbilicus and the trocar that I took down with some electrocautery but otherwise, the operative field was clean and dry. The right upper quadrant had been copiously irrigated until clear. All trocar sites were clean, dry and trocars were removed under direct visualization. #0 Vicryl was used to close the fascia at the umbilicus and all incisions were closed with #4-0 Vicryl. Steri-Strips and dry sterile dressing was applied. The patient was awakened, extubated, brought to recovery room awake, alert and hemodynamically stable. Sponge and needle counts correct times two.
[2019-06-23] MEDS ORDERED: LR 1,000 ML IV SCH ×2 (09:00)
[2019-06-23] MEDS ORDERED: fentaNYL 100 MCG/2 ML INJECTION (J3010) IV PRN (09:00)
[2019-06-23] MEDS ORDERED: ONDANSETRON 4MG/2ML VIAL (J2405) IV PRN ×2 (09:00)
[2019-06-23] MEDS ORDERED: oxyCODONE 5MG TAB PO PRN (09:00)
[2019-06-23] MEDS ORDERED: METOCLOPRAMIDE INJ 10MG/2ML VIAL (J2765) IV PRN (09:00)
[2019-06-23] MEDS ORDERED: LABETALOL HCL 100 MG/20 ML VIAL As Ordered ONE (09:01)
[2019-06-23 09:04] VITALS: BP 190/84
[2019-06-23] MEDS ORDERED: LABETALOL HCL 100 MG/20 ML VIAL IV SCH (09:15)
[2019-06-23] MEDS ORDERED: ALBUTEROL SULFATE 2.5 MG/0.5 ML INH NEB SOLN As Ordered ONE (10:35)
[2019-06-23 11:55] VITALS: BP 129/80
[2019-06-23] MEDS ORDERED: ALBUTEROL SULFATE 2.5 MG/0.5 ML INH NEB SOLN INH ONE (12:00)
[2019-06-23] MEDS ORDERED: traMADol 50 MG TAB PO SCH (12:00)
== END 2019-06-23 12:05 | disposition home or self-care (01) ==
LOC: M SDC 05:37
PROVIDERS: ATTEND Surgery
DX: K80.20 Calculus of gallbladder without cholecystitis without obstruction (principal); I25.2 Old myocardial infarction; I51.9 Heart disease, unspecified; I71.4 Abdominal aortic aneurysm, without rupture; E78.5 Hyperlipidemia, unspecified; J44.9 Chronic obstructive pulmonary disease, unspecified; K21.9 Gastro-esophageal reflux disease without esophagitis; K57.30 Diverticulosis of large intestine without perforation or abscess without bleeding; Z79.82 Long term (current) use of aspirin; Z79.02 Long term (current) use of antithrombotics/antiplatelets; Z79.899 Other long term (current) drug therapy; Z98.61 Coronary angioplasty status; F17.218 Nicotine dependence, cigarettes, with other nicotine-induced disorders
CPT/HCPCS: 47562; 88304; J0131; J0690; J1100; J1885; J2250; J2405; J3010

== ENCOUNTER → 2019-08-05 | Outpatient (CLI) | payer MEDICARE, OTHER ==
--- NOTE | 2019-08-05 09:49 | REP ---
ULTRASOUND ABDOMINAL AORTA: Real-time sonographic evaluation of the abdominal aorta performed. COMPARISON: 06/16/2019 Aneurysmal dilatation of the abdominal aorta mid aspect is essentially unchanged with maximum AP diameter 4.0 cm, in transverse 3.8 cm. More proximally, just below the diaphragm, maximum AP diameter of the abdominal aorta is 1.9 cm and at the level of the renal artery is 1.7 cm. More distally, just above the bifurcation, maximum AP diameter is 2.3 cm. Common iliac arteries are minimally ectatic, right measuring 1.2 cm and left 1.1 cm in AP dimension. IMPRESSION: No change in mid abdominal aortic aneurysm maximum AP diameter 4.0 cm when compared to a prior study of 06/16/2019. Electronically Signed by Jared Oleary MD 08/05/2019 03:48 P
== END ==
LOC: M RAD 07:16
PROVIDERS: ATTEND Physician Assistant
DX: I71.4 Abdominal aortic aneurysm, without rupture (principal)

== ENCOUNTER 2019-08-11 14:00 | Emergency (ER) | payer MEDICARE, OTHER ==
[~2019-08-11] VITALS: Ht 152.4 cm; Wt 65.0 kg
[2019-08-11] MEDS ORDERED: IPRATROPIUM 0.5MG/ALBUTEROL 2.5MG INH SOL UD 3ML (DUONEB)(J7620) NEB PRN (14:45)
[2019-08-11 14:53] LABS: VENOUS BASE EXCESS 5.7 (-2.0-2.0); VENOUS HCO3 31.7 MEQ/L (23.0-27.0); VENOUS O2 SATURATION 65.2 % (60.0-80.0); VENOUS PARTIAL PRESSURE CO2 52.2 mmHg (38.0-50.0); VENOUS PARTIAL PRESSURE O2 33.1 mmHg (30.0-50.0); VENOUS PH 7.401 UNITS (7.330-7.430); VENOUS STANDARD HCO3 28.8 MEQ/L; VENOUS TOTAL CO2 33.3 MEQ/L (24.0-28.0)
[2019-08-11 15:02] LABS: BASO # 0.1 10^3/uL (0.0-0.2); BASO % 0.4 % (0.0-1.0); EOS # 0.4 10^3/uL (0.0-0.5); EOS % 2.4 % (0.0-3.0); HEMATOCRIT 35.7 % (36.0-47.0); HEMOGLOBIN 11.6 g/dl (12.0-15.5); LYMPH # 1.3 10^3/uL (1.5-5.0); LYMPH % 8.3 % (24.0-44.0); MEAN CORPUSCULAR HEMOGLOBIN 29.1 pg (27.0-33.0); MEAN CORPUSCULAR HGB CONC 32.5 g/dl (32.0-36.5); MEAN CORPUSCULAR VOLUME 89.5 fl (80.0-96.0); MONO # 1.2 10^3/uL (0.0-0.8); MONO % 7.5 % (0.0-5.0); NEUTROPHILS # 12.5 10^3/uL (1.5-8.5); NEUTROPHILS % 80.8 % (36.0-66.0); PLATELET COUNT, AUTOMATED 298 10^3/uL (150-450); RED BLOOD COUNT 3.99 10^6/uL (4.00-5.40); WHITE BLOOD COUNT 15.5 10^3/uL (4.0-10.0)
[2019-08-11 15:14] LABS: INR 1.17; PROTHROMBIN TIME 14.6 SECONDS (11.8-14.0)
[2019-08-11 15:23] LABS: INFLUENZA A AMPLIFICATION NEGATIVE (NEGATIVE); INFLUENZA B AMPLIFICATION NEGATIVE (NEGATIVE)
--- NOTE | 2019-08-11 15:25 | REP ---
Clinical: Cough and dyspnea. Comparison: 04/23/2019. Findings: Evaluation is limited by portable technique, positioning/rotation and underpenetration. Lung damon demonstrate chronic interstitial changes. Subtle right lower lobe atelectasis and possible small right pleural reaction cannot be excluded. No pneumothorax. Skeletal structures intact. Impression: Chronic changes. Cannot exclude subtle right basilar process. Electronically Signed by Adrian Apodaca MD 08/11/2019 03:16 P
[2019-08-11 15:35] LABS: ALBUMIN 2.7 GM/DL (3.2-5.2); ALT/SGPT 13 U/L (12-78); BILIRUBIN,DIRECT 0.2 MG/DL (0.0-0.2); BILIRUBIN,TOTAL 0.6 MG/DL (0.2-1.0); BLOOD UREA NITROGEN 26 MG/DL (7-18); CALCIUM LEVEL 8.1 MG/DL (8.8-10.2); CARBON DIOXIDE LEVEL 31 MEQ/L (21-32); CHLORIDE LEVEL 107 MEQ/L (98-107); CK-MB VALUE MASS < 1.0 NG/ML (<3.6); CPK CREATINE PHOSPHOKINASE 29 U/L (26-192); CREATININE FOR GFR 0.88 MG/DL (0.55-1.30); GLOMERULAR FILTRATION RATE > 60.0 (>32); GLUCOSE, FASTING 106 MG/DL (70-100); MB/CK RELATIVE INDEX 3.45 (< OR =4); NT-PRO BNP 1232 PG/ML (<450); POTASSIUM SERUM 3.7 MEQ/L (3.5-5.1); SODIUM LEVEL 143 MEQ/L (136-145); TOTAL PROTEIN 5.5 GM/DL (6.4-8.2); TROPONIN I 0.02 NG/ML (< 0.10)
[2019-08-11] MEDS ORDERED: DOXY100C37 PO (16:21)
[2019-08-11] MEDS ORDERED: DOXYCYCLINE HYCLATE 100 MG TAB PO ONE (16:30)
[2019-08-11] MEDS ORDERED: ALBUTEROL 90 MCG/ACT 8GM HFA INHALER INH ONE (16:30)
[2019-08-11 16:33] VITALS: BP 147/64
--- NOTE | 2019-08-12 08:49 | ECGEPIP ---
[facility] - ED Test Date: 2019-08-11 Pat Name: TEMI MCKEON Department: Room: - Gender: Female Senior Web Designer: latoya : 1935 Requested By: ERROL PETIT Order Number: [id number] Reading MD: Nickolas Sorenson Measurements Intervals [place] Rate: 80 P: 23 [place]: 163 QRS: 38 QRSD: 88 T: 39 QT: 363 QTc: 420 Interpretive Statements SINUS RHYTHM LEFT VENTRICULAR HYPERTROPHY AND ST-T CHANGE SIMILAR TO 07/02/17 Electronically Signed on 08-12-2019 8:49:32 EST by Nikcolas Sorenson
== END 2019-08-11 17:30 | disposition home or self-care (01) ==
LOC: M ED 14:00 → EDBD 14:00 → M ED 17:30
DX: J40 Bronchitis, not specified as acute or chronic (principal); J44.1 Chronic obstructive pulmonary disease with (acute) exacerbation; I11.9 Hypertensive heart disease without heart failure; Z95.5 Presence of coronary angioplasty implant and graft; F17.200 Nicotine dependence, unspecified, uncomplicated; Z88.8 Allergy status to other drugs, medicaments and biological substances

== ENCOUNTER → 2020-03-01 | Outpatient (CLI) | payer MEDICARE, OTHER ==
[~2020-03-01] MED LIST changes: +DOXY100C37 PO
--- NOTE | 2020-03-01 11:43 | REP ---
CT ABDOMEN AND PELVIS WITHOUT IV OR ORAL CONTRAST: HISTORY: Abdominal aortic aneurysm without rupture. Comparison sonography August 05, 2019 showed a 4.0 cm infrarenal abdominal aortic aneurysm. Comparison CT study October 09, 2018. CT FINDINGS: Preliminary digital woodworker radiograph shows an unremarkable bowel gas pattern. The lung bases show bibasilar linear fibrosis which it is unchanged from comparison study. The liver and the spleen are normal in size. There is a small low density lesion inferiorly in the right lobe 1.1 cm in diameter unchanged from the comparison CT study consistent with cysts. Gallbladder surgical clips are noted post cholecystectomy. The spleen is homogeneous in texture normal in size. There are renal cysts in the mid and upper pole of the left kidney similar to the prior study. The largest of these measures 2.2 cm. There is extensive vascular calcification. There is an infrarenal abdominal aortic aneurysm again noted. This measures 4.2 cm in greatest anteroposterior x 4.0 cm in greatest right to left dimension. No grazyna-aneurysmal fibrosis or hemorrhage is appreciated. The iliac arteries are heavily calcified. 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 No retroperitoneal mass or adenopathy is seen. There is diverticulosis in the left colon. The uterus is surgically absent. No abdominal wall defect is seen. There are degenerative changes in the lumbosacral spine. The appendix is surgically absent as well. IMPRESSION: Infrarenal abdominal aortic aneurysm measures 4.2 cm AP x 4.0 cm right to left on today's study. 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 Post cholecystectomy, hysterectomy, and appendectomy. Electronically Signed by Richard Arango MD 03/01/2020 12:29 P
== END ==
LOC: M RAD 10:28
PROVIDERS: ATTEND Physician Assistant
DX: I71.4 Abdominal aortic aneurysm, without rupture (principal)

== ENCOUNTER → 2020-09-22 | Outpatient (CLI) | payer MEDICARE, OTHER ==
[~2020-09-22] MED LIST changes: +AMLO1TAB24 PO; -AMLO5TAB6 PO; -ASPI81TA85 PO; +ASPI81TA86 PO; +PANT40TA29 PO; -PANT40TA3 PO
--- NOTE | 2020-09-22 13:23 | REP ---
INDICATION: ABDONIAL AORTIC ANEURYM COMPARISON: Multiple prior examinations dating between 03/01/2020 and 07/02/2017 TECHNIQUE: Axial noncontrast images from the lung bases to the pubic symphysis with coronal and sagittal reformations. This CT examination was performed using the following dose reduction techniques: Automated exposure control, adjustment of mA and/or kv according to the patient's size, and use of iterative reconstruction technique. FINDINGS: Extensive calcified atherosclerotic changes of the aorta and branch vessels are again noted and similar to multiple prior examinations. Previously identified infrarenal abdominal aortic aneurysm currently measures 4.1 x 4.0 cm maximal diameter and appears to have mildly increased over time measured as 3.8 x 3.5 cm on 07/02/2017 examination. No evidence for periaortic fluid or inflammatory changes to suggest rupture or leak. Liver, spleen, pancreas, and bilateral adrenal glands are normal/stable. Kidneys demonstrate mild atrophic changes along with scattered bilateral hypodensities suggesting simple and complex cysts essentially unchanged compared with 10/09/2018. The enteric system is without obstruction or acute inflammatory process. Colonic and sigmoid diverticulosis noted without acute diverticulitis. Pelvis demonstrates normal bladder and prior hysterectomy. No ascites. No free air. No adenopathy. 2 cm fat containing periumbilical hernia again identified. Musculoskeletal structures demonstrate age-related changes without acute osseous abnormality. IMPRESSION: 1. Extensive calcified atherosclerotic changes throughout the aorta and branch vessels. Infrarenal abdominal aortic aneurysm similar to most recent prior examination and minimally increased over time as compared through 07/02/2017. No evidence for rupture or leak. 2. Chronic stable nonacute findings including age-related renal changes with bilateral simple and complex cysts as well as colonic diverticulosis. <Electronically signed by Adrian Apodaca > 09/22/20 [id number]
== END ==
LOC: M RAD 12:52
PROVIDERS: ATTEND Physician Assistant
DX: I71.4 Abdominal aortic aneurysm, without rupture (principal)

== ENCOUNTER → 2020-10-21 | Outpatient (CLI) | payer MEDICARE, OTHER ==
[~2020-10-21] MED LIST changes: -BUPR150T3 PO; +BUPR150T4 PO
== END ==
LOC: M LABSMTC 12:29
PROVIDERS: ATTEND Internal Medicine Cardiovascular Disease
DX: Z20.822 Contact with and (suspected) exposure to COVID-19 (principal); I35.0 Nonrheumatic aortic (valve) stenosis; R06.02 Shortness of breath